=== PATIENT | female | born 1990 | race Caucasian/White ===

== ENCOUNTER 2022-02-16 23:19 | Emergency (ER) | payer OTHER ==
[~2022-02-16] VITALS: Ht 149.9 cm; Wt 85.7 kg
--- NOTE | 2022-02-16 23:30 | NUR ---
BIBS. GEN BODY HIVES ADND ITCHING X THIS MORNING. NEW BODY WASH USED LAST NIGHT. AND COMPLETED FLAGYL TX YESTERDAY. NO AIR WAY COMPROMISE, OR RESP DISTRESS NOTED. PT A/OX4. CONNECTED PT TO POX AND MONITOR. SAFETY MEASURES IN PLACE.
[2022-02-16] MEDS ORDERED: DEXAMETHASONE SOD PHOSPHATE 10 MG/ML VIAL ONE (23:48)
[2022-02-16] MEDS ORDERED: FAMOTIDINE (20 MG) 20 MG TABLET ONE (23:49)
[2022-02-17] MEDS ORDERED: DEXAMETHASONE SOD PHOSPHATE 4 MG/ML VIAL IM ONE
[2022-02-17] MEDS ORDERED: FAMOTIDINE (20 MG) 20 MG TABLET PO ONE
--- NOTE | 2022-02-17 00:21 | NUR ---
Patient discharged to home in stable condition. Written and verbal after care instructions given. Patient verbalizes understanding of instruction. PT ambulatory with a steady gait
[2022-02-17 00:22] VITALS: BP 121/79
== END 2022-02-17 00:22 | disposition home or self-care (01) ==
LOC: ER 23:21
DX: O26.91 Pregnancy related conditions, unspecified, first trimester (principal); L50.9 Urticaria, unspecified; Z3A.12 12 weeks gestation of pregnancy
CPT/HCPCS: 99283; 96372; J1100